=== PATIENT | female | born 1965 | race Caucasian/White ===

== ENCOUNTER 2016-07-14 15:06 | Outpatient (CLI) | payer BC | END 2016-07-14 18:18 | disposition home or self-care (01) | LOC: SRD 15:06 | PROVIDERS: ATTEND Internal Medicine | DX: M54.12 Radiculopathy, cervical region (principal); M47.892 Other spondylosis, cervical region | CPT/HCPCS: 72050-TC ==

== ENCOUNTER 2017-11-16 16:24 | Outpatient (CLI) | payer BC | END 2017-11-16 19:51 | disposition home or self-care (01) | LOC: SRD 16:24 | PROVIDERS: ATTEND Internal Medicine | DX: J32.9 Chronic sinusitis, unspecified (principal) | CPT/HCPCS: 70220-TC ==